=== PATIENT | male | born 1960 | race Caucasian/White ===

== ENCOUNTER 2021-04-01 17:19 | Outpatient (CLI) | payer OTHER ==
--- NOTE | 2021-04-01 18:04 | XRAY Report ---
PROCEDURE: Ankle 3 View LT INDICATIONS: PAIN IN LEFT ANKLE TECHNIQUE: 3 views of the ankle were acquired. COMPARISON: None FINDINGS: Bones: No fractures or dislocations. Ankle mortise is normally aligned. No suspicious bony lesions . Soft tissues: No tibiotalar joint effusion. Achilles tendon appears normal. IMPRESSION: Normal left ankle Reviewed by: John Nino on 04/01/2021 6:03 PM PDT Approved by: John Nino on 04/01/2021 6:03 PM PDT Station ID: [id number]
== END 2021-04-01 17:20 | disposition home or self-care (01) ==
LOC: DI 17:19
PROVIDERS: ATTEND Naturopath
DX: M25.572 Pain in left ankle and joints of left foot (principal)

== ENCOUNTER 2022-08-15 14:51 | Emergency (ER) | payer OTHER ==
[2022-08-15 15:01] VITALS: BP 147/85
[2022-08-15] MEDS ORDERED: BACITRACIN ZINC OINT 1 PACKET TOP STA (17:51)
--- NOTE | 2022-08-15 17:58 | ED Physician Documentation ---
PD HPI UPPER EXT INJURY - Stated complaint Stated Complaint: LT FINGER INJ - Chief complaint Chief Complaint: Laceration - History obtained from History obtained from: Patient - Additonal information Additional information: The patient comes emergency department with chief complaint of laceration to left small finger dorsum with a sharp edge. The patient denies any other injuries. He states the injury happened just prior to presentation here in the emergency department. Up-to-date on tetanus. No other complaints at this time Review of Systems Ten Systems: 10 systems reviewed and negative Constitutional: reports: Reviewed and negative Eyes: reports: Reviewed and negative Ears: reports: Reviewed and negative Nose: reports: Reviewed and negative Throat: reports: Reviewed and negative Cardiac: reports: Reviewed and negative Respiratory: reports: Reviewed and negative GI: reports: Reviewed and negative : reports: Reviewed and negative Skin: reports: Laceration (s) Musculoskeletal: reports: Reviewed and negative Neurologic: reports: Reviewed and negative Psychiatric: reports: Reviewed and negative Endocrine: reports: Reviewed and negative Immunocompromised: reports: Reviewed and negative PD PAST MEDICAL HISTORY - Past Medical History Cardiovascular: None Respiratory: None Endocrine/Autoimmune: None - Past Surgical History Past Surgical History: Yes - Present Medications Home Medications: Ambulatory Orders Medication Instructions Recorded Confirmed Hydrocodone/Acetaminophen [[place] 1 each PO Q6H PRN #20 tablet 11/28/16 5-325 Tablet] Naproxen [Naprosyn] 500 mg PO BID #15 tablet 11/28/16 - Allergies Allergies/Adverse Reactions: Allergies Allergy/AdvReac Type Severity Reaction Status Date / Time No Known Drug Allergies Allergy Verified 08/15/22 14:55 - Social History Does the pt smoke?: No Smoking Status: Never smoker Does the pt drink ETOH?: Yes Does the pt have substance abuse?: No - Immunizations Immunizations are current?: Yes - POLST Patient has POLST: No PD ED PE NORMAL - Vitals Vital signs reviewed: Yes - General General: Alert and oriented X 3, No acute distress, Well developed/nourished - HEENT HEENT: Atraumatic, PERRL, EOMI, Moist mucous membranes - Neck Neck: Supple, no meningeal sign - Cardiac Cardiac: Strong equal pulses - Respiratory Respiratory: No respiratory distress - Derm Derm: Normal color, Warm and dry, No rash, Other (2.5 cm laceration able to PIP joint and dorsum of left small finger.) - Extremities Extremities: No deformity, Other (Full range of motion left small finger with intact extensor strength to resistance at both IP joints.) - Neuro Neuro: Alert and oriented X 3 - Psych Psych: Normal mood, Normal affect Results - Vitals Vitals: Vital Signs - 24 hr 08/15/22 14:56 Temperature 36.5 C Heart Rate 42 L Respiratory 16 Rate Blood Pressure 147/85 H O2 Saturation 98 Oxygen O2 Source Room air Procedures - Laceration (location) Left small finger Length in cm: 2.5 Wound type: Linear, Into subcut fat, Clean Neurovascular status: Sensory intact Tendon involvement: Tendon intact Anesthesia: Lidocaine 1% with epi Wound preparation: Hibiclens, Irrigated copiously NS, Wound explored, To the base Skin layer closure: Nylon, Interrupted, Size #-0 - enter number (5.0), Sutures - enter # (5) PD MEDICAL DECISION MAKING - ED course Complexity details: considered differential, d/w patient ED course: We have discussed wound care management at home and the timeline for suture removal. We have also discussed signs of infection, which should prompt reevaluation. Departure - Departure Disposition: 01 Home, Self Care Clinical Impression: Laceration Condition: Stable Instructions: ED Laceration Hand Comments: Please keep your wound generally clean and dry. You may let water and soap run over the wound but please do not rub, scrub, or immerse the wound until sutures are removed. You should have your wound rechecked in 5 to 7 days, at which time the sutures will most likely be ready to be removed. Your wound has been repaired with synthetic sutures today, which do not dissolve on their own and need to be snipped out. A medical professional should examine your wound to do this. If you begin to notice redness or swelling progressively spreading away from your wound, or if you notice that the wound has split open and is draining or has become "mushy" please have the wound rechecked.
== END 2022-08-15 18:13 | disposition home or self-care (01) ==
LOC: ED 14:51
DX: S61.217A Laceration without foreign body of left little finger without damage to nail, initial encounter (principal); X58.XXXA Exposure to other specified factors, initial encounter
CPT/HCPCS: 12001; 99281

== ENCOUNTER 2023-03-15 11:57 | Day surgery (SDC) | payer BC ==
[2023-03-15] MEDS ORDERED: LACTATED RINGERS 1,000 ML IV ONE (12:48)
--- NOTE | 2023-03-15 13:46 | ANESTHESIA ---
Pre-Anesthesia VS, & Labs - Diagnosis history of polyps - Procedure colonoscopy Vital Signs: Temp Pulse Resp BP Pulse Ox O2 Flow Rate 36.6 C 49 L 13 155/92 H 100 03/15/23 12:24 03/15/23 12:24 03/15/23 12:24 03/15/23 12:24 03/15/23 12:24 Height: 5 ft 10 in Weight (kg): 65.4 kg Body Mass Index: 20.7 BMI Classification: Normal - NPO >8 hours Home Medications and Allergies Home Medications: Ambulatory Orders Losartan Potassium 25 mg PO BID 03/14/23 Losartan Potassium 25 mg PO BID 03/14/23 Allergies/Adverse Reactions: Allergies Allergy/AdvReac Type Severity Reaction Status Date / Time No Known Drug Allergies Allergy Verified 03/14/23 13:58 Anes History & Medical History - Anesthetic History Anesthesia Complications: reports: No previous complications - Medical History Cardiovascular: reports: Hypertension Pulmonary: reports: None Endocrine/Autoimmune: reports: None Smoking Status: Never smoker History of Cancer?: No - Surgical History General: reports: Colonoscopy Exam General: Alert, Oriented x3 Dental: WNL Mouth Opening: Greater than 4 Fingerbreadths Neck Mobility: Normal Mallampati classification: I Thyromental Distance: greater than 6 cm Respiratory: Lungs clear Cardiovascular: Regular rate Plan Anesthesia Type: Total IV Consent for Procedure(s) Verified and Reviewed: Yes Code Status: Attempt Resuscitation ASA classification: 2-Mild systemic disease Is this case an emergency?: No
[2023-03-15] MEDS ORDERED: PROPOFOL 200 MG/20 ML VIAL IVP ONE (14:04)
[2023-03-15] MEDS ORDERED: GLYCOPYRROLATE 1 MG/5 ML VIAL ONE (14:13)
[2023-03-15] MEDS ORDERED: LACTATED RINGERS 200 ML IV ONE (14:33)
[2023-03-15 14:47] VITALS: BP 135/85
--- NOTE | 2023-03-15 15:19 | ANESTHESIA POST OP EVALUATION ---
Anesthesia Post Eval - Post Anesthesia Eval Vitals: Last Vital Signs Temp 36.9 C 03/15/23 14:33 Pulse 79 03/15/23 14:47 Resp 16 03/15/23 14:47 BP 135/85 H 03/15/23 14:47 Pulse Ox 100 03/15/23 14:47 O2 Flow Rate CV Function Including HR & BP: Stable Pain Control: Satisfactory Nausea & Vomiting: Negative Mental Status: Baseline Respiratory Status: Airway Patent Hydration Status: Satisfactory Anesthesia Complications: None
== END 2023-03-15 11:58 | disposition home or self-care (01) ==
LOC: SDS 11:57
PROVIDERS: ATTEND Surgery
DX: Z12.11 Encounter for screening for malignant neoplasm of colon (principal); K57.30 Diverticulosis of large intestine without perforation or abscess without bleeding; Z86.010 Personal history of colon polyps; K64.1 Second degree hemorrhoids
CPT/HCPCS: 45378; J7120